=== PATIENT | female | born 1985 | race Caucasian/White ===

== ENCOUNTER 2020-09-15 16:28 | Emergency (ER) | payer OTHER ==
[2020-09-15 16:33] VITALS: BP 115/66; PULSE 89; RESP 20; TEMP 98.5
[2020-09-15] MEDS ORDERED: ACET/COD 300 MG/30 MG STARTER PACK 6 TAB BTL PO STA (18:11)
--- NOTE | 2020-09-15 18:11 | ED ---
Skin/Abscess/FB HPI - General Chief complaint: Burn/Smoke Inhalation Stated complaint: burn on hand Time Seen by Provider: 09/15/20 17:22 Source: patient Mode of arrival: ambulatory Limitations: no limitations - History of Present Illness Initial comments: Patient is a 35-year-old female presenting to the emergency Department with complaints of burn on her right hand. Patient states she went to package pick up a currently and that she did not think was on. Patient has mild torres noted to the palmar aspect of her right hand. She states this happened about 3-4 hours prior to arrival. She states she did take some ibuprofen for discomfort, and she has been keeping her hand in cool water. She denies any further complaints at this time. Her tetanus vaccine is up-to-date. - Related Data Previous Rx's Medication Instructions Recorded Bacitracin/Polymyx Oint 1 applic TOPICAL BID 5 Days #1 tube 09/15/20 [Polysporin] Allergies Allergy/AdvReac Type Severity Reaction Status Date / Time No Known Allergies Allergy Verified 09/15/20 16:33 Review of Systems ROS Statement: Those systems with pertinent positive or pertinent negative responses have been documented in the HPI. ROS Other: All systems not noted in ROS Statement are negative. Past Medical History Past Medical History: No Reported History History of Any Multi-Drug Resistant Organisms: None Reported Past Surgical History: Section, Tubal Ligation Additional Past Surgical History / Comment(s): daly hooker Past Psychological History: Anxiety, PTSD Smoking Status: Vaper Past Alcohol Use History: None Reported Past Drug Use History: Marijuana General Exam - General Exam Comments Initial Comments: GENERAL: Patient is well-developed and well-nourished. Patient is nontoxic and in no acute distress. HEAD: Atraumatic, normocephalic. EYES: Pupils equal round and reactive to light, extraocular movements intact, sclera anicteric, conjunctiva are normal. Eyelids were unremarkable. ENT: Nares patent, oropharynx clear without exudates. Moist mucous membranes. NECK: Normal range of motion, supple without lymphadenopathy or JVD. LUNGS: Unlabored respirations. Breath sounds clear to auscultation bilaterally and equal. No wheezes rales or rhonchi. HEART: Regular rate and rhythm without murmurs, rubs or gallops. ABDOMEN: Soft, nontender, normoactive bowel sounds. No guarding, no rebound. No masses appreciated. : Deferred MUSCULOSKELETAL: Normal extremities with adequate strength and normal range of motion, no pitting or edema. No clubbing or cyanosis. NEUROLOGICAL: Patient is alert and oriented x 3. Normal speech, normal gait. PSYCH: Normal mood, normal affect. SKIN: Warm, Dry, normal turgor,. Patient has superficial first-degree torres to the palmar aspect of her right hand, on the pads. There is very mild erythema, no blistering at this time. She has full movement of her right hand. Limitations: no limitations Course Vital Signs 09/15/20 16:29 Temperature 98.5 F Pulse Rate 89 Respiratory 20 Rate Blood Pressure 115/66 O2 Sat by Pulse 97 Oximetry Medical Decision Making - Medical Decision Making Patient is a 35-year-old female here for superficial torres to her right hand after she picked up a hot curling iron. Her torres are superficial, first- degree, palmar aspect of her right hand. She is neurovascular intact. Her palm is soft. We discussed cleaning the wound with mild soap and water. She can apply topical antibiotic such as bacitracin, I will give her prescription. Recommended alternating Tylenol and Motrin for any discomfort. She is stable for discharge. She'll follow up with her primary care physician in one to 3 days. Return parameters were discussed with the patient she verbalized understanding. Disposition Clinical Impression: First degree burn of right hand including fingers Disposition: HOME SELF-CARE Condition: Stable Instructions (If sedation given, give patient instructions): Superficial Burn (ED) Additional Instructions: Please return to the Emergency Department if symptoms worsen or any other concerns. Keep hand clean with mild soap and water. Apply topical antibiotic twice daily. Continue to take Tylenol alternating with Motrin for pain control. Follow-up with your PCP in 1-3 days. Prescriptions: Bacitracin/Polymyx Oint [Polysporin] 1 applic TOPICAL BID 5 Days #1 tube Is patient prescribed a controlled substance at d/c from ED?: No Referrals: Nonstaff,Physician [Primary Care Provider] - 1-2 days Time of Disposition: 18:10
== END 2020-09-15 18:22 | disposition home or self-care (01) ==
LOC: EC 16:28
DX: T23.131A Burn of first degree of multiple right fingers (nail), not including thumb, initial encounter (principal); F41.9 Anxiety disorder, unspecified; F17.290 Nicotine dependence, other tobacco product, uncomplicated; F12.90 Cannabis use, unspecified, uncomplicated; X19.XXXA Contact with other heat and hot substances, initial encounter
CPT/HCPCS: 99283